=== PATIENT | male | born 2000 | race Caucasian/White ===

== ENCOUNTER 2020-08-30 19:28 | Emergency (ER) | payer SELFPAY ==
[2020-08-30] MEDS ORDERED: Dexamethasone 4 MG TAB ONE (20:47)
[2020-08-30] MEDS ORDERED: Famotidine 20 MG TAB ONE (20:47)
[2020-08-30] MEDS ORDERED: diphenhydrAMINE 25 MG CAP ONE (20:47)
== END 2020-08-30 21:05 | disposition home or self-care (01) ==
LOC: ERS 19:28
DX: T65.811A Toxic effect of latex, accidental (unintentional), initial encounter (principal); M79.89 Other specified soft tissue disorders
CPT/HCPCS: 99283; J8540; Q0163